=== PATIENT | female | born 1995 | race Caucasian/White ===

== ENCOUNTER 2019-12-07 10:46 | Emergency (ER) | payer BC, SELFPAY ==
[2019-12-07 10:47] VITALS: BP 134/80; PULSE 88; RESP 16; TEMP 36.8; O2SAT 100
--- NOTE | 2019-12-07 10:47 | ED.ALLEREA ---
HPI - Allergic Reaction General Chief complaint: Allergic Reaction Stated complaint: Pos allergic reaction Time Seen by Provider: 12/07/19 10:50 Source: patient and RN notes reviewed Mode of arrival: ambulatory Limitations: no limitations History of Present Illness HPI narrative: 24 old female presents with concern for hives on her face. Reports she thinks she may have been bitten by something in the middle of the night, reports she woke up and felt crusty area on her face. Reports red patches on her face. Denies tongue swelling, lip swelling, tongue itching, difficulty breathing, nausea, vomiting, diarrhea. Reports her ears flush. Denies taking any antihistamines or other medications for this problem. MD complaint: allergic reaction Related Data Home Medications Medication Instructions Recorded Confirmed Control Pill 12/07/19 Vyvanse 40 mg DAILY 12/07/19 12/07/19 dextroamphetamine-amphetamine 5 mg PO DAILY 12/07/19 12/07/19 [Adderall] Allergies Allergy/AdvReac Type Severity Reaction Status Date / Time No Known Allergies Allergy Verified 12/07/19 10:52 Review of Systems Review of Systems: Narrative: CONSTITUTIONAL: Denies malaise, chills, sweats, or fever. EYES: Denies visual changes, redness, or discharge. ENT: Denies rhinorrhea, congestion, sinus pain, otalgia, sore throat, denies swollen tongue, swollen lips, itchy tongue, difficulty swallowing. CARDIOVASCULAR: Denies chest pain, palpitations, or edema. RESPIRATORY: Denies cough or dyspnea. GASTROINTESTINAL: Denies abdominal pain, nausea, vomiting, diarrhea SKIN: Reports red patches on face that are mildly irritating, not painful. MUSCULOSKELETAL: Denies myalgia. NEUROLOGIC: Denies headache. All systems reviewed & are unremarkable except as noted in HPI and below PMFSH Comments At time of signature, agree with nursing past medical, surgical, social and family history. There is no relevant family history pertinent to the presenting complaint Exam Narrative: Exam Narrative: GENERAL: Well-appearing, well-nourished, and in no acute distress. HEAD: Normocephalic, atraumatic. EYES: PERRLA, conjunctivae clear ENT: Nares clear. Mucous membranes moist. Oropharynx without edema, erythema or lesions. Tonsils not enlarged and without exudate. NECK: Supple. CHEST: No respiratory distress. Clear to auscultation. No bony deformities, no asymmetry. Speaks in full sentences. HEART: Regular rate and rhythm. NEURO: Alert and oriented x3. PSYCH: Normal mood and affect Course Course Emergency Course: Patient is aware of diagnosis, understands and agrees to treatment plan. Anticipatory guidance given. Patient agrees to follow-up as directed and is aware of reasons to seek care at the emergency department. Portions of this record may have been created with voice recognition software Vital Signs Vital signs: Vital Signs Temperature 98.3 F 12/07/19 10:47 Pulse Rate 88 12/07/19 10:47 Respiratory Rate 16 12/07/19 10:47 Blood Pressure 134/80 12/07/19 10:47 Pulse Oximetry 100 12/07/19 10:47 Temperature 98.3 F 12/07/19 10:47 Pulse Rate 88 12/07/19 10:47 Respiratory Rate 16 12/07/19 10:47 Blood Pressure 134/80 12/07/19 10:47 Pulse Oximetry 100 12/07/19 10:47 Reviewed. Patient has been instructed to follow up with her primary care provider within the next week regarding her elevated blood pressure today. MDM - Allergic Reaction MDM Narrative Medical decision making narrative: No soft palate or uvula edema, no tongue or lip edema or other mucosal involvement, no respiratory compromise, no stridor, no wheezing, no wheezing, no history of syncope, no hypotension, no nausea, vomiting, or diarrhea. Differential Diagnosis Differential diagnosis: Likely anaphylaxis, allergic reaction, angioedema, contact dermatitis and urticaria Critical Care Time Critical Care Time Critical Care Time: No Discharge Plan Discharge Clinical I
== END 2019-12-07 11:15 | disposition home or self-care (01) ==
PROVIDERS: Emergency Provider Nurse Practitioner
DX: L50.9 Urticaria, unspecified (principal)
CPT/HCPCS: 99203; G0463